=== PATIENT | female | born 2005 | race Caucasian/White ===

== ENCOUNTER 2024-01-08 09:11 | Emergency (ER) | payer MEDICAID ==
[~2024-01-08] VITALS: Ht 160 cm; Wt 57.9 kg
[2024-01-08 10:27] VITALS: BP 143/89; PULSE 77; RESP 16; TEMP 98.5; O2SAT 99
[2024-01-08] MEDS: ACETAMINOPHEN 325 MG TAB PO ONE (10:52)
== END 2024-01-08 13:04 | disposition home or self-care (01) ==
LOC: ER 09:11
DX: O9A.211 Injury, poisoning and certain other consequences of external causes complicating pregnancy, first trimester (principal); R51.9 Headache, unspecified; R10.10 Upper abdominal pain, unspecified; Z3A.11 11 weeks gestation of pregnancy; V89.2XXA Person injured in unspecified motor-vehicle accident, traffic, initial encounter; Y93.89 Activity, other specified; Y92.89 Other specified places as the place of occurrence of the external cause; Y99.8 Other external cause status
CPT/HCPCS: 76801